=== PATIENT | female | born 1960 | race Caucasian/White ===

== ENCOUNTER 2018-05-13 09:50 | Outpatient (CLI) | payer BC | END 2018-05-13 09:51 | disposition home or self-care (01) | LOC: BICMAMMO 09:50 | PROVIDERS: ATTEND Family Medicine | DX: Z12.31 Encounter for screening mammogram for malignant neoplasm of breast (principal) | CPT/HCPCS: 77063; 77067 ==

== ENCOUNTER 2019-05-17 08:19 | Outpatient (CLI) | payer BC ==
--- NOTE | 2019-05-17 09:32 | MMO ---
Bilateral MAMMO Bilat Screen [facility]. CLINICAL HISTORY: Patient is 58 years old and is seen for screening. The patient has no family history of breast cancer. The patient has no personal history of cancer. VIEWS: The views performed were: bilateral craniocaudal with tomosynthesis and bilateral mediolateral oblique with tomosynthesis. FILMS COMPARED: The present examination has been compared to prior imaging studies performed at [facility] on 12/07/2014, 12/13/2015, 05/12/2017 and 05/13/2018. MAMMOGRAM FINDINGS: There are scattered fibroglandular densities. There are stable benign appearing calcifications seen in both breasts. There are no suspicious masses, suspicious calcifications, or new areas of architectural distortion. IMPRESSION: THERE IS NO MAMMOGRAPHIC EVIDENCE OF MALIGNANCY. A ROUTINE FOLLOW-UP MAMMOGRAM IN 1 YEAR IS RECOMMENDED. THE RESULTS OF THIS EXAM WERE SENT TO THE PATIENT. ACR BI-RADS Category 2 - Benign finding MAMMOGRAPHY NOTE: 1. A negative mammogram report should not delay a biopsy if a dominant of clinically suspicious mass is present. 2. Approximately 10% to 15% of breast cancers are not detected by mammography. 3. Adenosis and dense breasts may obscure an underlying neoplasm. Reported by: KELSEY BOATENG MD Electonically Signed: [id number]
== END 2019-05-17 08:20 | disposition home or self-care (01) ==
LOC: BICMAMMO 08:19
PROVIDERS: ATTEND Family Medicine
DX: Z12.31 Encounter for screening mammogram for malignant neoplasm of breast (principal)
CPT/HCPCS: 77063; 77067

== ENCOUNTER 2020-03-07 09:38 | Outpatient (CLI) | payer BC ==
[2020-03-07 10:19] LABS: Estimated GFR-MDRD - POC Greater than 90
--- NOTE | 2020-03-07 11:28 | MRI ---
Exam: Brain MRI with and without contrast HISTORY: Vision changes. COMPARISON: None FINDINGS: Brain MRI: Hemorrhage: No parenchymal hemorrhage or extra-axial hematoma Calvarium: Appropriate T1 marrow signal intensity Midline brain parenchyma: Unremarkable Cerebrum:No parenchymal mass, mass effect or midline shift. Brain volume, age-appropriate. Cortical g ray-white matter differentiation is preserved. Minimal T2 and FLAIR white matter hyperintensities due to chronic small vessel ischemic change Ventricles: No evidence of hydrocephalus. Sinuses and mastoid air cells: Adequate aeration Diffusion: Central arterial flow is maintained. Absent restricted diffusion. Postcontrast images: No pathologic enhancement of the brain parenchyma. Orbit MRI: Symmetric signal intensity of the optic nerves on the noncontrasted T2-weighted images. Postcontrast images do not demonstrate any abnormal enhancement. Symmetric signal intensity of the ocular rectus muscles. Retrobulbar fat is preserved. No intraconal or extraconal mass. Symmetric signal intensity of the lacrimal glands. Bilateral ocular lenses are appropriately located. No evidence of a sellar mass. Midline pituitary stalk IMPRESSION: 1. Absent restricted diffusion. No acute infarct 2. No abnormal signal intensity in either orbit.
[2020-03-07] MEDS ORDERED: Magnevist 469MG/ML 20 ML VIAL ONE (13:05)
== END 2020-03-07 09:39 | disposition home or self-care (01) ==
LOC: BICMRI 09:38
PROVIDERS: ATTEND Family Medicine
DX: H53.9 Unspecified visual disturbance (principal)
CPT/HCPCS: 70553; 82565; A9579

== ENCOUNTER 2021-06-20 07:51 | Outpatient (CLI) | payer BC | END 2021-06-20 07:52 | disposition home or self-care (01) | LOC: BICMAMMO 07:51 | PROVIDERS: ATTEND Family Medicine | DX: Z12.31 Encounter for screening mammogram for malignant neoplasm of breast (principal) | CPT/HCPCS: 77063; 77067 ==

== ENCOUNTER 2022-08-24 08:15 | Outpatient (CLI) | payer BC | END 2022-08-24 08:16 | disposition home or self-care (01) | LOC: BICMAMMO 08:15 | PROVIDERS: ATTEND Family Medicine | DX: Z12.31 Encounter for screening mammogram for malignant neoplasm of breast (principal) | CPT/HCPCS: 77063; 77067 ==

== ENCOUNTER 2022-10-21 12:33 | Outpatient (CLI) | payer BC ==
[2022-10-21 13:27] LABS: #Eosinphils 0.1 10x3/uL (0.0-0.5); #Monocytes 0.5 10x3/uL (0.0-1.1); #Neutrophils 2.3 10x3/uL (1.5-8.4); %Basophils 0.4 % (0.0-2.0); %Eosinophils 2.9 % (0.0-6.0); %Lymphocytes 38.8 % (18.0-47.0); %Neutrophils 46.9 % (40.0-75.0); Hemoglobin 13.3 g/dL (12.0-15.5); Mean Corpuscular HGB CONC 34.7 g/dL (32.0-36.0); Mean Corpuscular Hemoglobin 31.1 pg (27.0-33.0); Mean Corpuscular Volume 89.5 fl (81.6-98.3); Mean Platelet Volume 9.9 fl (7.4-10.4); Platelet Count 283 10x3/uL (150-450); Red Blood Cell (RBC) Count 4.28 10x6/uL (3.90-5.03); White Blood Cell (WBC) Count 4.9 10x3/uL (3.5-10.5)
== END 2022-10-21 12:34 | disposition home or self-care (01) ==
LOC: LABBT 12:33
PROVIDERS: ATTEND Orthopaedic Surgery Hand Surgery
DX: Z01.818 Encounter for other preprocedural examination (principal); M65.342 Trigger finger, left ring finger; M65.341 Trigger finger, right ring finger; M18.12 Unilateral primary osteoarthritis of first carpometacarpal joint, left hand
CPT/HCPCS: 85025; 93005; 93010

== ENCOUNTER 2022-10-23 05:36 | Day surgery (SDC) | payer BC ==
[2022-10-21 10:48] VITALS: BMI 28.3
[2022-10-23] MEDS ORDERED: Neomycin-Polymyxin 1 ML AMP ONE (06:16)
[2022-10-23] MEDS ORDERED: Bupivacaine PF 0.5% 30 ML VIAL ONE (06:16)
[2022-10-23] MEDS ORDERED: Bacitracin Zinc Ointment 30 gm TUBE ONE (06:16)
[2022-10-23] MEDS ORDERED: Betamet Acet/Betamet Na Ph 30 MG/5 ML VIAL ONE (06:46)
[2022-10-23] MEDS ORDERED: CEFAZOLIN 2 GM VIAL ONE (07:01)
[2022-10-23] MEDS ORDERED: Sodium Chloride 0.9% 100 ML ONE (07:01)
[2022-10-23] MEDS ORDERED: fentaNYL PF 100 MCG/2 ML SYRINGE ONE (07:06)
[2022-10-23] MEDS ORDERED: Ketorolac Tromethamine 30 MG/ML VIAL ONE (08:34)
== END 2022-10-23 09:55 | disposition home or self-care (01) ==
LOC: SDC 05:36
PROVIDERS: ATTEND Orthopaedic Surgery Hand Surgery
PROC: 3E0U33Z Introduction of Anti-inflammatory into Joints, Percutaneous Approach (ICD-10-PCS; principal; 2022-10-23)
PROC: 0LN80ZZ Release Left Hand Tendon, Open Approach (ICD-10-PCS; principal; 2022-10-23)
PROC: 0LN70ZZ Release Right Hand Tendon, Open Approach (ICD-10-PCS; principal; 2022-10-23)
DX: M65.341 Trigger finger, right ring finger (principal); M65.342 Trigger finger, left ring finger; M18.12 Unilateral primary osteoarthritis of first carpometacarpal joint, left hand; E78.5 Hyperlipidemia, unspecified; E55.9 Vitamin D deficiency, unspecified; I10 Essential (primary) hypertension; Z79.899 Other long term (current) drug therapy; Z88.5 Allergy status to narcotic agent; Z88.6 Allergy status to analgesic agent
CPT/HCPCS: J0702; J1885; J3490; S0020

== ENCOUNTER 2023-07-14 21:13 | Emergency (ER) | payer BC ==
[2023-07-14] MEDS ORDERED: Ondansetron PF 4 MG/2 ML Vial ONE (22:08)
[2023-07-14 22:19] LABS: #Neutrophils 10.3 thou/uL (1.40-6.50); %Basophils 0.3 % (0.0-1.0); %Eosinophils 0.2 % (0.0-10.0); %Lymphocytes 9.8 % (21.0-51.0); %Neutrophils 81.4 % (42.0-75.0); Hematocrit 36.6 % (36.0-47.0); Hemoglobin 12.6 g/dL (12.0-16.0); Mean Corpuscular HGB CONC 34.4 g/dL (32.0-36.0); Mean Corpuscular Hemoglobin 30.9 pg (27.0-31.0); Mean Corpuscular Volume 89.7 fl (78.0-98.0); Mean Platelet Volume 10.1 fL (7.4-10.4); Platelet Count 252 10x3/uL (130-400); RBC Distribution Width 12.5 % (11.5-14.5); Red Blood Cell (RBC) Count 4.08 mill/uL (4.20-5.40); White Blood Cell (WBC) Count 12.6 10x3/uL (4.8-10.8)
[2023-07-14 22:44] LABS: ALT (SGPT) 20 U/L (8-55); AST (SGOT) 15 U/L (5-34); Albumin 4.8 g/dL (3.4-4.8); Alkaline Phosphatase 69 U/L (40-110); Anion Gap 16 mmol/L (10-20); BUN (Urea Nitrogen) 14 mg/dL (9.8-20.1); Bilirubin, Total 0.5 mg/dL (0.2-1.2); Calc. Creatinine Clearance 0 mL/min (70-130); Calcium 9.7 mg/dL (7.8-10.44); Carbon Dioxide 22 mmol/L (23-31); Chloride 101 mmol/L (98-107); Estimated GFR 73; Globulin 2.9 g/dL (2.4-3.5); Glucose 128 mg/dL (80-115); Lipase 16 U/L (8-78); Potassium 3.6 mmol/L (3.5-5.1); Protein, Total 7.7 g/dL (5.8-8.1); Sodium 135 mmol/L (136-145)
[2023-07-15] MEDS ORDERED: Ketorolac Tromethamine 30 MG/ML VIAL ONE ×2 (00:09→01:26)
[2023-07-15 01:23] LABS: Bacteria/HPF None Seen HPF (None Seen); Bilirubin Negative (Negative); Blood, Urine 2+ (Negative); CAUTI Indications for Culture Dysuria,urgency,freq; Clarity Clear (Clear); Glucose, Urine (Dipstick) Normal (Negative); Ketone, Urine 40 mg/dL (Negative); Leukocyte Negative Leu/uL (Negative); Nitrite Negative (Negative); Protein, Urine (Dipstick) 20 mg/dL (Neg-Trace); Specific Gravity, Urine 1.024 (1.002-1.036); Squamous Epithelial None Seen HPF (0-3); Urobilinogen Normal mg/dL (Less than 2); WBC/HPF 0-3 HPF (0-3); pH, Urine 5.5 (5.0-9.0)
[2023-07-15 01:25] LABS: Urine Culture Reflex No No
[2023-07-15] MEDS ORDERED: Morphine 4 MG/ML VIAL ONE (01:26)
== END 2023-07-15 01:56 | disposition home or self-care (01) ==
LOC: ERS 21:13
DX: N13.2 Hydronephrosis with renal and ureteral calculous obstruction (principal); K76.0 Fatty (change of) liver, not elsewhere classified; E78.00 Pure hypercholesterolemia, unspecified; I10 Essential (primary) hypertension; Z79.899 Other long term (current) drug therapy
CPT/HCPCS: 36415; 74176; 80053; 81001; 83690; 85025; 96374; 96375; 96376; J1885; J2270; J2405

== ENCOUNTER 2023-07-21 14:53 | Outpatient (CLI) | payer BC ==
[2023-07-21 16:46] LABS: PTT 31.8 sec (22.0-33.0); Prothrombin Time 11.2 sec (9.5-12.1)
[2023-07-21 16:48] LABS: Anion Gap 16 mmol/L (10-20); BUN (Urea Nitrogen) 16 mg/dL (9.8-20.1); Calc. Creatinine Clearance 0 mL/min (70-130); Calcium 9.1 mg/dL (7.8-10.44); Carbon Dioxide 24 mmol/L (23-31); Chloride 103 mmol/L (98-107); Estimated GFR 62; Glucose 87 mg/dL (80-115); Potassium 4.2 mmol/L (3.5-5.1); Sodium 139 mmol/L (136-145)
[2023-07-21 16:52] LABS: Hematocrit 31.8 % (34.9-44.5); Hemoglobin 10.8 g/dL (12.0-15.5); Mean Corpuscular Hemoglobin 30.9 pg (27.0-33.0); Mean Corpuscular Volume 91.1 fl (81.6-98.3); Mean Platelet Volume 10.3 fl (7.4-10.4); Platelet Count 343 10x3/uL (150-450); Red Blood Cell (RBC) Count 3.49 10x6/uL (3.90-5.03)
== END 2023-07-21 14:54 | disposition home or self-care (01) ==
LOC: LABBT 14:53
PROVIDERS: ATTEND Urology
DX: Z01.818 Encounter for other preprocedural examination (principal); N13.2 Hydronephrosis with renal and ureteral calculous obstruction
CPT/HCPCS: 80048; 85027; 85610; 85730; 93005; 93010

== ENCOUNTER 2023-07-22 06:55 | Day surgery (SDC) | payer BC ==
[2023-07-21 15:40] VITALS: BMI 27.4
[2023-07-22] MEDS ORDERED: Ketorolac Tromethamine 30 MG/ML VIAL ONE (08:36)
[2023-07-22] MEDS ORDERED: fentaNYL 50 mcg/mL 1 mL Vial ONE (08:50)
[2023-07-22] MEDS ORDERED: SUGAMMADEX SODIUM 200 MG/2 ML VIAL ONE (08:51)
[2023-07-22] MEDS ORDERED: LevoFLOXacin 500 mg/D5W 100 ML BAG ONE (09:15)
[2023-07-22] MEDS ORDERED: PROPOFOL 200 MG/20 ML VIAL ONE (09:35)
[2023-07-22] MEDS ORDERED: Rocuronium Bromide 10 MG/ML (10ML VIAL) ONE (09:35)
[2023-07-22] MEDS ORDERED: Lidocaine 1% PF 5 ML VIAL ONE (09:35)
[2023-07-22] MEDS ORDERED: Succinylcholine 200 MG/10 ml SYRINGE FS ONE (09:35)
[2023-07-22] MEDS ORDERED: Ondansetron PF 4 MG/2 ML Vial ONE (09:35)
[2023-07-22] MEDS ORDERED: Dexamethasone 20 MG/5 ML VIAL ONE (09:35)
[2023-07-22] MEDS ORDERED: Iopamidol 15 ML ONE (10:41)
[2023-07-22] MEDS ORDERED: Oxybutynin 5 MG TAB ONE (11:12)
[2023-07-22] MEDS ORDERED: Phenazopyridine HCl 100 MG TAB ONE (11:13)
== END 2023-07-22 12:05 | disposition home or self-care (01) ==
LOC: SDC 06:55
PROVIDERS: ATTEND Urology
PROC: 0T778DZ Dilation of Left Ureter with Intraluminal Device, Via Natural or Artificial Opening Endoscopic (ICD-10-PCS; principal; 2023-07-22)
PROC: 0TC78ZZ Extirpation of Matter from Left Ureter, Via Natural or Artificial Opening Endoscopic (ICD-10-PCS; principal; 2023-07-22)
DX: N13.2 Hydronephrosis with renal and ureteral calculous obstruction (principal); J30.2 Other seasonal allergic rhinitis; E78.5 Hyperlipidemia, unspecified; G43.109 Migraine with aura, not intractable, without status migrainosus; I10 Essential (primary) hypertension; Z90.710 Acquired absence of both cervix and uterus; Z79.899 Other long term (current) drug therapy
CPT/HCPCS: 74420; 82365; 88300; C1713; C1747; C1769; C2617; J1100; J1885; J1956; J2405; J2704; J3010; Q9967

== ENCOUNTER 2023-11-04 14:54 | Outpatient (CLI) | payer BC | END 2023-11-04 14:55 | disposition home or self-care (01) | LOC: BICULT 14:54 | PROVIDERS: ATTEND Urology | DX: N13.2 Hydronephrosis with renal and ureteral calculous obstruction (principal); N28.1 Cyst of kidney, acquired | CPT/HCPCS: 76770 ==